=== PATIENT | female | born 1970 | race Caucasian/White ===

== ENCOUNTER 2016-06-25 14:42 | Emergency (ER) | payer OTHER ==
[2016-06-25] MEDS ORDERED: NAPROXEN 250 MG TAB As Ordered ONE (15:38)
[2016-06-25] MEDS ORDERED: NORCO, ANEXSIA 5/325MG TABLET (HYDROcodone/ACETAMINOPHEN) As Ordered ONE (15:40)
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
== END 2016-06-25 16:38 | disposition home or self-care (01) ==
LOC: M ED 14:42
DX: S33.5XXA Sprain of ligaments of lumbar spine, initial encounter (principal); V47.6XXA Car passenger injured in collision with fixed or stationary object in traffic accident, initial encounter; Y92.410 Unspecified street and highway as the place of occurrence of the external cause; Y93.89 Activity, other specified; Y99.8 Other external cause status; J45.909 Unspecified asthma, uncomplicated; K21.9 Gastro-esophageal reflux disease without esophagitis; Z98.84 Bariatric surgery status; Z90.79 Acquired absence of other genital organ(s); Z90.89 Acquired absence of other organs; Z87.891 Personal history of nicotine dependence; Z79.51 Long term (current) use of inhaled steroids; Z79.899 Other long term (current) drug therapy; Z88.1 Allergy status to other antibiotic agents; Z91.041 Radiographic dye allergy status

== ENCOUNTER → 2016-09-06 | Outpatient (CLI) | payer OTHER ==
[~2016-09-06] MED LIST: CONRAY-43 43% 50ML VIAL (Q9960) As Ordered ONE; LIDOCAINE 1% MDV 20ML VIAL As Ordered ONE; methylPREDNISolone SUSP 40 MG/ML (DEPO-medrol) VIAL (J1030) As Ordered ONE
--- NOTE | 2016-09-06 16:31 | REP ---
BILATERAL HIP INJECTION: The procedure was performed under the direct supervision of Dr. Torres. The benefits and risks including, but no limited to pain, infection, bleeding and anaphylaxis were explained to the patient and informed consent was obtained. The right hip was addressed first. The right femoral neck was localized using fluoroscopic guidance. The skin was prepped and draped in a sterile fashion. 1% Lidocaine was used as a local anesthetic. Using fluoroscopic guidance, a #22-gauge spinal needle was inserted and advanced to the femoral neck. The patient has a prior history of contrast allergy, therefore, contrast was not utilized. 12 mL of a solution containing 10 mL of 1% Lidocaine and 2 mL of Depo-Medrol 40 mg was injected. The left hip was then addressed. The left femoral neck was localized using fluoroscopic guidance. The skin was prepped and draped in a sterile fashion. 1% Lidocaine was used as a local anesthetic. Using fluoroscopic guidance, a #22-gauge spinal needle was inserted and advanced to the femoral neck. Again due to the patient's prior contrast allergy, contrast was not used. 12 mL of a solution containing 10 mL of 1% Lidocaine and 2 mL of Depo-Medrol 40 mg was injected. The needle was then removed. The patient tolerated the procedure well and there were no immediate complications. 4 seconds of fluoroscopy time was utilized for this procedure. Reviewed by REAGAN Santamaria 09/06/2016 04:51 PEdited and Signed by Casey Torres MD 09/06/2016 05:10 P
== END ==
LOC: M RADPRO 09:40
PROVIDERS: ATTEND Orthopaedic Surgery
DX: M25.551 Pain in right hip (principal); M25.552 Pain in left hip
CPT/HCPCS: 20610; 77002; J1030; Q9960

== ENCOUNTER → 2018-03-09 | Outpatient (CLI) | payer OTHER | LOC: M RAD 14:19 | DX: N64.52 Nipple discharge (principal); N94.12 Deep dyspareunia; N83.201 Unspecified ovarian cyst, right side; R92.8 Other abnormal and inconclusive findings on diagnostic imaging of breast | CPT/HCPCS: 76856 ==

== ENCOUNTER → 2018-09-03 | Outpatient (CLI) | payer OTHER ==
--- NOTE | 2018-09-03 14:33 | REP ---
Digital diagnostic bilateral mammography with CAD: History: Bilateral breast nodules. 6-month followup study. Screening mammography March 09, 2018 was BI-RADS category 3. A 4 mm well-circumscribed nodule is seen laterally in the right breast and a 4 mm nodule was noted in the upper outer quadrant of the left breast. 6-month followup was recommended. Findings: Routine views of each breast were obtained. There has been no change in the appearance or size of either of the lateral breast nodules. One is again seen on each side unchanged. No new mammographic finding is seen. No architectural distortion or microcalcification is seen. Two normal-appearing lymph nodes are visible in the right axilla. Impression: BIRADS 3: BI-RADS/ACR category 3 mammogram. Probably Benign Findings. Stable BI-RADS category 3 probably benign findings. 6-month followup bilateral mammography recommended. This mammogram was interpreted with the aid of an FDA-approved computer-aided detection system. The patient states she had a clinical breast exam in February 2018. The patient letter being requested is m 3. This patient's estimated Tyrer-Cuzick lifetime risk assessment for the breast cancer is 13.8 %. Electronically Signed by Casey Torres MD 09/03/2018 04:46 P
== END ==
LOC: M RAD 12:10
PROVIDERS: ATTEND Obstetrics & Gynecology Obstetrics
DX: N63.0 Unspecified lump in unspecified breast (principal)

== ENCOUNTER → 2019-04-11 | Outpatient (REF) | LOC: M LAB LCGH 13:37 | PROVIDERS: ATTEND Surgery | DX: K80.51 Calculus of bile duct without cholangitis or cholecystitis with obstruction (principal) ==

== ENCOUNTER → 2020-10-15 | Outpatient (CLI) | payer OTHER ==
[~2020-10-15] MED LIST changes: +BREO1INH PO; +CITRTAB16 PO; -CONRAY-43 43% 50ML VIAL (Q9960) As Ordered ONE; +CYMB1CAP5 PO; +ERGO500029; +GLYCCAP PO; +IRON27TA2 PO; +KPHOS50TA PO; -LIDOCAINE 1% MDV 20ML VIAL As Ordered ONE; +MM S100C PO; +SING10TA32 PO; +VENTAER INH; +VITMTA PO; -methylPREDNISolone SUSP 40 MG/ML (DEPO-medrol) VIAL (J1030) As Ordered ONE
--- NOTE | 2020-10-15 17:04 | REPMRS ---
Patient History The patient states she had a clinical breast exam in August 2020. Family history of unknown cancer in maternal grandmother, breast cancer at age 50 or over in maternal aunt, pancreatic cancer at age 50 or over in maternal aunt. Patient states no breast complaints today. Patient has signed MRS History Sheet. Digital Woman Screen Mammo: October 15, 2020 - Exam #: [id number] Bilateral CC and MLO view(s) were taken. Technologist: Tamia Perez, Technologist Prior study comparison: September 03, 2018, digital mammo diagnostic bilateral, performed at [facility]. March 09, 2018, digital mammo diagnostic bilateral, performed at [facility]. FINDINGS: There are scattered fibroglandular densities. The Volpara volumetric breast density category is:B. There has been no change in the appearance of the mammogram from the prior studies. There is a mild amount of scattered fibroglandular density which is fairly symmetric. There is no interval development of dominant mass, architectural distortion, or grouped microcalcification suggestive of malignancy. 3-D tomosynthesis shows no additional findings. Assessment: BI-RADS/ACR category 1 mammogram. Negative Mammogram. Recommendation Routine screening mammogram of both breasts in 1 year (for women over age 40). This patient's [facility] Lifetime Breast Cancer Risk is estimated at 13.4 %. This mammogram was interpreted with the aid of an FDA-approved computer-aided dectection system. Electronically Signed By: Shad Torres MD 10/15/20 [id number]
== END ==
LOC: M WHC 16:18
PROVIDERS: ATTEND Obstetrics & Gynecology Obstetrics
DX: N60.19 Diffuse cystic mastopathy of unspecified breast (principal); Z12.31 Encounter for screening mammogram for malignant neoplasm of breast

== ENCOUNTER → 2021-05-07 | Outpatient (CLI) | payer OTHER ==
[~2021-05-07] MED LIST changes: +ALBU0.63 NEB; +CHOL100012 PO; +CLAR10CA3 PO; +ESTR625TA
== END ==
LOC: M RAD 16:23
PROVIDERS: ATTEND Physician Assistant
DX: J30.9 Allergic rhinitis, unspecified (principal)

== ENCOUNTER → 2021-06-11 | Outpatient (CLI) | payer BC, OTHER ==
[~2021-06-11] MED LIST changes: -CHOL100012 PO; -CLAR10CA3 PO
== END ==
LOC: M RAD 13:48
PROVIDERS: ATTEND Otolaryngology
DX: J01.30 Acute sphenoidal sinusitis, unspecified (principal); J33.9 Nasal polyp, unspecified

== ENCOUNTER → 2021-07-20 | Outpatient (CLI) | payer BC, OTHER ==
[~2021-07-20] MED LIST changes: +CHOL100012 PO; +CLAR10CA3 PO
== END ==
LOC: M EKG 13:38
PROVIDERS: ATTEND Anesthesiology
DX: Z01.818 Encounter for other preprocedural examination (principal); E11.9 Type 2 diabetes mellitus without complications

== ENCOUNTER → 2021-07-31 | Outpatient (CLI) | payer BC, OTHER | LOC: M LABSMTC 09:51 | PROVIDERS: ATTEND Anesthesiology | DX: Z01.812 Encounter for preprocedural laboratory examination (principal); Z20.822 Contact with and (suspected) exposure to COVID-19 ==

== ENCOUNTER 2021-08-05 10:03 | Day surgery (SDC) | payer BC, OTHER ==
[~2021-08-05] VITALS: Ht 152.4 cm; Wt 78.9 kg
[~2021-08-05 10:03] MED LIST changes: +dexameTHASONE 4 MG/ML 1ML VIAL (J1100 PER 1MG) IV ONE
[2021-08-05] MEDS ORDERED: LR 1,000 ML IV ONE (11:40)
[2021-08-05] MEDS ORDERED: ALBUTEROL SULFATE 2.5 MG/0.5 ML INH NEB SOLN INH ONE (11:40)
[2021-08-05] MEDS ORDERED: SCOPOLAMINE 1MG TRANSDERMAL PATCH TOP ONE (11:40)
[2021-08-05] MEDS ORDERED: SODIUM CHLORIDE 0.9% NASAL GEL 15GM (AYR) As Ordered ONE (13:37)
[2021-08-05] MEDS ORDERED: EPINEPHrine 1MG/ML INJ 30ML MD-VIAL As Ordered ONE ×2 (13:37→16:25)
[2021-08-05] MEDS ORDERED: LIDOCAINE W/EPINEPHRINE 1% 20ML VIAL As Ordered ONE (13:37)
[2021-08-05] MEDS ORDERED: METHYLENE BLUE 0.5% (5MG/ML) 10 ML AMP (PROVAYBLUE) As Ordered ONE (13:39)
[2021-08-05] MEDS ORDERED: LIDOCAINE 2% 100MG/5ML SDV (FOR ANES.) As Ordered ONE ×2 (14:04→15:30)
[2021-08-05] MEDS ORDERED: fentaNYL 250 MCG/5 ML INJECTION As Ordered ONE (14:04)
[2021-08-05] MEDS ORDERED: propofoL 200 MG/20 ML VIAL As Ordered ONE (14:04)
[2021-08-05] MEDS ORDERED: MIDAZOLAM INJ 2MG/2ML VIAL (J2250 PER 1MG) As Ordered ONE (14:04)
[2021-08-05] MEDS ORDERED: SUGAMMADEX SODIUM 500 MG/5 ML VIAL (BRIDION) As Ordered ONE (14:04)
[2021-08-05] MEDS ORDERED: dexameTHASONE 4 MG/ML 1ML VIAL (J1100 PER 1MG) As Ordered ONE (14:04)
[2021-08-05] MEDS ORDERED: ONDANSETRON 4MG/2ML VIAL As Ordered ONE (14:04)
[2021-08-05] MEDS ORDERED: ROCURONIUM BROMIDE 50 MG/5 ML VIAL As Ordered ONE (14:04)
[2021-08-05] MEDS ORDERED: LACRILUBE (AKWA TEARS) OPHTH OINT 3.5 GM As Ordered ONE (14:15)
[2021-08-05] MEDS ORDERED: ACETAMINOPHEN 1000MG 100ML IV BTL (OFIRMEV) (J0131 PER 10MG) As Ordered ONE (14:18)
[2021-08-05] MEDS ORDERED: ONDANSETRON 4MG/2ML VIAL IV PRN (17:05)
[2021-08-05] MEDS ORDERED: fentaNYL 100 MCG/2 ML INJECTION IV PRN (17:05)
[2021-08-05] MEDS ORDERED: LR 1,000 ML IV SCH ×2 (17:05→17:20)
[2021-08-05] MEDS ORDERED: oxyCODONE 5MG TAB PO PRN (17:05)
[2021-08-05 18:15] VITALS: BP 133/72
== END 2021-08-05 18:18 | disposition home or self-care (01) ==
LOC: M SDC 10:03
PROVIDERS: ATTEND Otolaryngology
DX: J33.9 Nasal polyp, unspecified (principal); J32.0 Chronic maxillary sinusitis; J32.2 Chronic ethmoidal sinusitis; J34.2 Deviated nasal septum; J45.909 Unspecified asthma, uncomplicated; E11.9 Type 2 diabetes mellitus without complications; D50.9 Iron deficiency anemia, unspecified; L30.9 Dermatitis, unspecified; F32.9 Major depressive disorder, single episode, unspecified; M19.90 Unspecified osteoarthritis, unspecified site; Z88.1 Allergy status to other antibiotic agents; Z88.5 Allergy status to narcotic agent; Z91.040 Latex allergy status; Z79.899 Other long term (current) drug therapy; Z86.16 Personal history of COVID-19
CPT/HCPCS: 30520; 31255; 31267; 61782; 88300; 88305; C2625; J0131; J0171; J1100; J2250; J2405; J3010; Q9968

== ENCOUNTER 2021-12-08 17:15 | Emergency (ER) | payer BC, OTHER ==
[~2021-12-08] VITALS: Ht 152.4 cm; Wt 80.1 kg
[2021-12-08 17:15] VITALS: BP 135/79
[~2021-12-08 17:15] MED LIST changes: +CITRACAL MAXIMU1 TAB PO; -CITRTAB16 PO; -dexameTHASONE 4 MG/ML 1ML VIAL (J1100 PER 1MG) IV ONE
[2021-12-08] MEDS ORDERED: CYCL5TAB (17:28)
[2021-12-08] MEDS ORDERED: DUPI300I (17:28)
== END 2021-12-08 20:00 | disposition left against medical advice (07) ==
LOC: M ED 17:15
DX: Z53.29 Procedure and treatment not carried out because of patient's decision for other reasons (principal)

== ENCOUNTER → 2021-12-27 | Outpatient (REF) | payer OTHER ==
[~2021-12-27] MED LIST changes: +CYCL5TAB; +DUPI300I
[2021-12-27 13:34] LABS: APPEARANCE, URINE HAZY (CLEAR); BACTERIA, URINE AUTO NEGATIVE (NEGATIVE); BILIRUBIN, URINE AUTO 2+ (NEGATIVE); BLOOD, URINE BLOOD NEGATIVE (NEGATIVE); COLOR, URINE AMBER (YELLOW); GLUCOSE, URINE (UA) AUTO NEGATIVE (NEGATIVE); KETONE, URINE AUTO TRACE mg/dL (NEGATIVE); LEUKOCYTE ESTERASE, URINE AUTO NEGATIVE (NEGATIVE); MUCUS, URINE MODERATE (NEGATIVE); NITRITE, URINE AUTO NEGATIVE (NEGATIVE); PROTEIN, URINE AUTO 1+ mg/dL (NEGATIVE); RBC, URINE AUTO 3 /HPF (0-3); SPECIFIC GRAVITY URINE AUTO 1.042 (1.002-1.035); SQUAMOUS EPITHELIAL CELL UR AU 9 /HPF (0-6); WBC, URINE AUTO 1 /HPF (0-3)
== END ==
LOC: M LAB REF 12:17
PROVIDERS: ATTEND Physician Assistant Medical
DX: N39.0 Urinary tract infection, site not specified (principal)

== ENCOUNTER 2023-07-11 19:48 | Emergency (ER) | payer OTHER ==
[~2023-07-11] VITALS: Ht 149.9 cm; Wt 77.7 kg
[~2023-07-11 19:48] MED LIST changes: +MONT-5 PO; -SING10TA32 PO
[2023-07-11 20:46] LABS: BASO % 0.4 % (0.0-1.0); EOS # 0.2 10^3/uL (0.0-0.5); EOS % 2.1 % (0.0-3.0); HEMOGLOBIN 14.2 g/dl (12.0-15.5); LYMPH % 19.4 % (24.0-44.0); MEAN CORPUSCULAR HEMOGLOBIN 28.6 pg (27.0-33.0); MEAN CORPUSCULAR HGB CONC 33.8 g/dl (32.0-36.5); MEAN CORPUSCULAR VOLUME 84.7 fl (80.0-96.0); MONO # 0.6 10^3/uL (0.0-0.8); MONO % 5.5 % (2.0-8.0); NEUTROPHILS # 7.3 10^3/uL (1.5-8.5); NEUTROPHILS % 72.4 % (36.0-66.0); PLATELET COUNT, AUTOMATED 279 10^3/uL (150-450); RED BLOOD COUNT 4.96 10^6/uL (4.00-5.40); WHITE BLOOD COUNT 10.1 10^3/uL (4.0-10.0)
[2023-07-11 21:09] LABS: HCG, SERUM QUALITATIVE NEGATIVE (NEGATIVE); LIPASE 34 U/L (12-53)
[2023-07-11 21:12] LABS: ALBUMIN 3.4 G/DL (3.2-5.2); ALKALINE PHOSPHATASE 86 U/L (46-116); ALT/SGPT 28 U/L (7.0-40); AST/SGOT 27 U/L (<34); BILIRUBIN,DIRECT 0.1 MG/DL (<0.4); BILIRUBIN,TOTAL 0.4 MG/DL (0.3-1.2); BLOOD UREA NITROGEN 10 MG/DL (9-23); CALCIUM LEVEL 9.2 MG/DL (8.5-10.1); CARBON DIOXIDE LEVEL 26 MMOL/L (20-31); CHLORIDE LEVEL 106 MMOL/L (98-107); CREATININE FOR GFR 0.61 MG/DL (0.55-1.30); GLOMERULAR FILTRATION RATE > 60.0 (>51); GLUCOSE, FASTING 117 MG/DL (60-100); POTASSIUM SERUM 4.2 MMOL/L (3.5-5.1); SODIUM LEVEL 140 MMOL/L (136-145); TOTAL PROTEIN 6.4 G/DL (5.7-8.2)
[2023-07-11] MEDS: ONDANSETRON 4MG 2ML VIAL IV ONE (21:21)
[2023-07-11] MEDS: NS 1,000 ML IV ONE (21:21)
[2023-07-11] MEDS: MORPHINE 4 MG/ML 1ML VIAL IV ONE (21:21)
[2023-07-11 21:31] LABS: RSV AMPLIFICATION NEGATIVE (NEGATIVE)
[2023-07-11 21:34] LABS: APPEARANCE, URINE HAZY (CLEAR); BACTERIA, URINE AUTO 1+ (NEGATIVE); BILIRUBIN, URINE AUTO NEGATIVE (NEGATIVE); BLOOD, URINE BLOOD NEGATIVE (NEGATIVE); COLOR, URINE YELLOW (YELLOW); GLUCOSE, URINE (UA) AUTO NEGATIVE (NEGATIVE); KETONE, URINE AUTO TRACE mg/dL (NEGATIVE); LEUKOCYTE ESTERASE, URINE AUTO 1+ (NEGATIVE); NITRITE, URINE AUTO NEGATIVE (NEGATIVE); PROTEIN, URINE AUTO NEGATIVE (NEGATIVE); RBC, URINE AUTO 2 /HPF (0-3); SPECIFIC GRAVITY URINE AUTO 1.012 (1.002-1.035); SQUAMOUS EPITHELIAL CELL UR AU 9 /HPF (0-6); UROBILINOGEN, URINE AUTO 0.2 mg/dL (0.0-2.0); WBC, URINE AUTO 4 /HPF (0-3)
[2023-07-11] MEDS ORDERED: ISOVUE-370 76% 100ML VIAL As Ordered ONE (21:52)
[2023-07-11] MEDS: KETOROLAC 30 MG/ML 1ML VIAL IV ONE (23:23)
[2023-07-11] MEDS: PIPERACILLIN/TAZOBACTAM SOD 3.375 GM in D5W MINI-BAG PLUS 50 ML IV ONE (23:24)
[2023-07-12] MEDS ORDERED: KETO10TAB PO (00:10)
[2023-07-12] MEDS ORDERED: AMOX875T2 PO (00:10)
[2023-07-12] MEDS ORDERED: FLUC150T9 PO (00:10)
[2023-07-12 00:18] VITALS: BP 100/54; TEMP 97.8; O2SAT 97
== END 2023-07-12 00:38 | disposition home or self-care (01) ==
LOC: M ED 19:48
DX: K57.32 Diverticulitis of large intestine without perforation or abscess without bleeding (principal); Z88.1 Allergy status to other antibiotic agents; Z91.048 Other nonmedicinal substance allergy status; Z79.51 Long term (current) use of inhaled steroids; Z79.2 Long term (current) use of antibiotics; Z79.899 Other long term (current) drug therapy; Z79.810 Long term (current) use of selective estrogen receptor modulators (SERMs)
CPT/HCPCS: 74177; 80048; 80076; 81001; 83690; 84703; 85025; 87631; 96361; 96365; 96375; 99284; J1885; J2405; J2543; Q9967

== ENCOUNTER 2023-10-21 11:31 | Emergency (ER) | payer OTHER ==
[~2023-10-21] VITALS: Ht 152.4 cm; Wt 83.8 kg
[~2023-10-21 11:31] MED LIST changes: +AMOX875T2 PO; +FLUC150T9 PO; +KETO10TAB PO
[2023-10-21 11:33] VITALS: TEMP 98.7
[2023-10-21] MEDS: KETOROLAC 60MG 2ML VIAL IM ONE (12:20)
[2023-10-21] MEDS ORDERED: KETO10TAB PO (12:48)
[2023-10-21 13:05] VITALS: BP 123/78; O2SAT 99
== END 2023-10-21 13:07 | disposition home or self-care (01) ==
LOC: M ED 11:31
DX: S76.011A Strain of muscle, fascia and tendon of right hip, initial encounter (principal); M16.11 Unilateral primary osteoarthritis, right hip; X50.0XXA Overexertion from strenuous movement or load, initial encounter; Y92.009 Unspecified place in unspecified non-institutional (private) residence as the place of occurrence of the external cause; Y93.89 Activity, other specified; Y99.9 Unspecified external cause status; Z79.899 Other long term (current) drug therapy; Z88.1 Allergy status to other antibiotic agents; Z91.048 Other nonmedicinal substance allergy status; Z96.642 Presence of left artificial hip joint
CPT/HCPCS: 73502; 96372; 99284; J1885

== ENCOUNTER → 2023-10-27 | Outpatient (CLI) | payer OTHER ==
[2023-10-27 18:32] LABS: HEMATOCRIT 39.8 % (36.0-47.0); HEMOGLOBIN 12.9 g/dl (12.0-15.5); MEAN CORPUSCULAR HEMOGLOBIN 27.8 pg (27.0-33.0); MEAN CORPUSCULAR HGB CONC 32.4 g/dl (32.0-36.5); MEAN CORPUSCULAR VOLUME 85.8 fl (80.0-96.0); PLATELET COUNT, AUTOMATED 329 10^3/uL (150-450); RED BLOOD COUNT 4.64 10^6/uL (4.00-5.40); WHITE BLOOD COUNT 5.5 10^3/uL (4.0-10.0)
[2023-10-27 18:42] LABS: INR 0.9; PROTHROMBIN TIME 11.9 SECONDS (12.5-14.5)
[2023-10-27 18:50] LABS: C REACTIVE PROTEIN QUANTITATIV < 0.40 MG/DL (<1.0)
[2023-10-27 18:52] LABS: ALBUMIN 3.5 G/DL (3.2-5.2); ALKALINE PHOSPHATASE 111 U/L (46-116); ALT/SGPT 38 U/L (7.0-40); AST/SGOT 27 U/L (<34); BILIRUBIN,TOTAL 0.2 MG/DL (0.3-1.2); BLOOD UREA NITROGEN 17 MG/DL (9-23); CALCIUM LEVEL 9.3 MG/DL (8.5-10.1); CARBON DIOXIDE LEVEL 30 MMOL/L (20-31); CHLORIDE LEVEL 106 MMOL/L (98-107); CREATININE FOR GFR 0.76 MG/DL (0.55-1.30); GLOMERULAR FILTRATION RATE > 60.0 (>51); GLUCOSE, FASTING 90 MG/DL (60-100); POTASSIUM SERUM 4.8 MMOL/L (3.5-5.1); SODIUM LEVEL 140 MMOL/L (136-145); TOTAL PROTEIN 6.4 G/DL (5.7-8.2)
[2023-10-27 18:54] LABS: TOTAL 25(OH) VITAMIN D 33.9 NG/ML (20.0-100.0)
[2023-10-27 19:05] LABS: HEMOGLOBIN A1c 5.4 % (4.0-6.0)
== END ==
LOC: M PLALAB 15:30
PROVIDERS: ATTEND Orthopaedic Surgery
DX: M16.31 Unilateral osteoarthritis resulting from hip dysplasia, right hip (principal)